=== PATIENT | male | born 1935 | race Caucasian/White ===

== ENCOUNTER 2017-06-05 11:17 | Emergency (ER) | END 2017-06-06 01:10 | disposition home or self-care (01) ==

== ENCOUNTER → 2017-07-11 | Day surgery (SDC) | END | disposition home or self-care (01) ==

== ENCOUNTER 2017-07-18 00:37 | Emergency (ER) | END 2017-07-18 08:11 | disposition home or self-care (01) ==

== ENCOUNTER 2017-09-11 10:00 | Day surgery (SDC) | END 2017-09-11 16:10 | disposition home or self-care (01) ==

== ENCOUNTER 2017-11-06 06:02 | Inpatient (IN) | END 2017-11-28 17:20 | DRG 252 ==

== ENCOUNTER 2018-02-09 10:35 | Emergency (ER) | END 2018-02-09 17:00 | disposition home or self-care (01) ==